=== PATIENT | female | born 1950 | race Caucasian/White ===

== ENCOUNTER → 2016-08-10 | Outpatient (CLI) | payer MEDICARE, BC ==
[~2016-08-10] VITALS: Ht 154.9 cm; Wt 101.8 kg
[~2016-08-10] MED LIST: ALLEGRA ALLERG180 MG PO; AMOXICILLIN/CLA1 TA1 PO; BENICAR PO; BUMEX2 MG; BUMEX2 MG PO; BUSPAR DIVIDOSE15 MG PO; CALCIUM-500 5001 CTB; CALCIUM-500 5001 CTB PO; CARDIZEM CD120 MG PO; CEPHALEXIN500 M1 PO; CORGARD40 MG PO; COZAAR 50MG50 MG/TAB PO; COZAAR100 MG PO; ENJUVIA; ENJUVIA0.3 MG PO; EPA FISH OIL1 SGL PO; FLAGYL500 MG PO; FLEXERIL 1010 MG/TAB PO; FLEXERIL10 MG PO; FLONASE NASAL S16 GM NS; GABAPENTIN100 M1 PO; IMITREX100 MG PO; KLONOPIN 0.5MG0.5 MG PO; KLONOPIN 1MG1 MG PO; LASIX 40MG TABL40 MG PO; LASIX 80MG TABL80 MG PO; LEXAPRO 10MG10 MG PO; LORTAB 5/500 501 TAB PO; MICRO-K 1010 MEQ PO; MOBIC 7.5MG7.5 MG PO; MULTI VITAMINS1 TAB PO; NAPROSYN PO; NATURE'S BLE1000 MCG PO; NEURONTIN100 MG/CAP PO; NEURONTIN300 MG/CAP PO; NORCO 325 MG-51 TAB PO; OCUVITE1 TA1 PO; PAXIL 20MG20 MG PO; PHENTERMINE15 MG PO; PRAVACHOL 40MG40 MG PO; PRAVASTATIN; PRIL40 PO; PRILOSEC 20MG20 MG PO; PROBIOTIC PO; PROBIOTIC-MAJOR PO; REMERON 15M15 MG/TA1 PO; SEROQUEL 2525 MG/TAB PO; SEROQUEL100 MG PO; SYNTHROID 0.10.15 MG PO; TEGRETOL 2200 MG/TA1 PO; TEGRETOL 2200 MG/TAB PO; TIAZAC120 MG PO; TIAZAC240 MG PO; TOPAMAX 25MG25 M1 PO; TOPAMAX50 MG PO; ULTRAM 50MG TAB50 MG PO; VICODIN 5/5001 UDTAB PO; VITAMIN B COMPL1 SGL PO; VITAMIN D 1001000 IU PO; VITAMIN D32000 IU; VITAMIND3 5000; ZAROXOLYN5 MG PO
[2016-08-10 14:01] VITALS: BP 109/59; PULSE 58
[2016-08-10 14:24] VITALS: BP 109/59; PULSE 58
== END ==
LOC: LIGHT 13:55
DX: E88.81 Metabolic syndrome and other insulin resistance (principal); E11.9 Type 2 diabetes mellitus without complications; E66.01 Morbid (severe) obesity due to excess calories; Z68.41 Body mass index [BMI] 40.0-44.9, adult; I10 Essential (primary) hypertension

== ENCOUNTER → 2016-08-15 | Outpatient (CLI) | payer MEDICARE, BC | LOC: MHCPAIN 10:53 | DX: G89.29 Other chronic pain (principal); M54.16 Radiculopathy, lumbar region; M47.817 Spondylosis without myelopathy or radiculopathy, lumbosacral region; M48.06 Spinal stenosis, lumbar region; M53.86 Other specified dorsopathies, lumbar region | CPT/HCPCS: G0463 ==

== ENCOUNTER → 2016-08-31 | Outpatient (CLI) | payer MEDICARE, BC | LOC: MHCPAIN 09:17 | DX: M47.817 Spondylosis without myelopathy or radiculopathy, lumbosacral region (principal) | CPT/HCPCS: J1100; Q9967 ==

== ENCOUNTER → 2016-09-28 | Outpatient (CLI) | payer MEDICARE, BC | LOC: MHCPAIN 10:59 | DX: M47.817 Spondylosis without myelopathy or radiculopathy, lumbosacral region (principal) | CPT/HCPCS: J1100 ==

== ENCOUNTER → 2016-10-09 | Outpatient (CLI) | payer MEDICARE, BC | LOC: MHCPAIN 10:54 | DX: G89.29 Other chronic pain (principal); M47.27 Other spondylosis with radiculopathy, lumbosacral region | CPT/HCPCS: G0463 ==

== ENCOUNTER 2016-10-18 10:00 | Outpatient (RCR) | payer MEDICARE, BC ==
[~2016-10-18 10:00] MED LIST changes: -CALCIUM-500 5001 CTB; -EPA FISH OIL1 SGL PO; -OCUVITE1 TA1 PO; -VITAMIND3 5000
== END 2016-10-26 08:56 | disposition home or self-care (01) ==
LOC: WSPT 10:00
DX: M48.06 Spinal stenosis, lumbar region (principal)
CPT/HCPCS: G8978-GP; G8979-GP; G8980-GP

== ENCOUNTER → 2016-10-27 | Outpatient (CLI) | payer MEDICARE, BC ==
[~2016-10-27] MED LIST changes: +CALCIUM-500 5001 CTB; +EPA FISH OIL1 SGL PO; +OCUVITE1 TA1 PO; +VITAMIND3 5000
== END ==
LOC: BHSO 14:20
DX: F31.81 Bipolar II disorder (principal)

== ENCOUNTER → 2016-11-09 | Outpatient (CLI) | payer MEDICARE, BC | LOC: MHCPAIN 12:24 | DX: M47.817 Spondylosis without myelopathy or radiculopathy, lumbosacral region (principal) | CPT/HCPCS: J1100 ==

== ENCOUNTER → 2016-11-22 | Outpatient (CLI) | payer MEDICARE, BC | LOC: MHCPAIN 11:13 | DX: G89.29 Other chronic pain (principal); M47.817 Spondylosis without myelopathy or radiculopathy, lumbosacral region; M53.3 Sacrococcygeal disorders, not elsewhere classified; R51 Headache | CPT/HCPCS: G0463 ==

== ENCOUNTER → 2016-11-30 | Outpatient (CLI) | payer MEDICARE, BC | LOC: MHCPAIN 10:44 | DX: M53.3 Sacrococcygeal disorders, not elsewhere classified (principal) | CPT/HCPCS: G0260; J1040; Q9967 ==

== ENCOUNTER → 2016-12-26 | Outpatient (CLI) | payer MEDICARE, BC | LOC: BHSO 10:24 | DX: F31.73 Bipolar disorder, in partial remission, most recent episode manic (principal) ==

== ENCOUNTER 2017-01-27 11:36 | Emergency (ER) | payer MEDICARE, BC ==
[~2017-01-27] VITALS: Ht 154.9 cm; Wt 99.5 kg
[~2017-01-27 11:36] MED LIST changes: -CALCIUM-500 5001 CTB; -EPA FISH OIL1 SGL PO; -OCUVITE1 TA1 PO; -VITAMIND3 5000
[2017-01-27 12:18] VITALS: TEMP 99.1
[2017-01-27] MEDS ORDERED: OCUVITE1 TA1 PO (12:30)
[2017-01-27] MEDS ORDERED: CALCIUM-500 5001 CTB (12:30)
[2017-01-27] MEDS ORDERED: VITAMIND3 5000 (12:31)
[2017-01-27] MEDS ORDERED: EPA FISH OIL1 SGL PO (12:31)
[2017-01-27 12:43] VITALS: BP 137/95; PULSE 65
== END 2017-01-27 12:44 | disposition home or self-care (01) ==
LOC: COL.ER 11:36
DX: L76.22 Postprocedural hemorrhage of skin and subcutaneous tissue following other procedure (principal)

== ENCOUNTER → 2017-02-20 | Outpatient (CLI) | payer MEDICARE, OTHER ==
[~2017-02-20] MED LIST changes: +CALCIUM-500 5001 CTB; +EPA FISH OIL1 SGL PO; +OCUVITE1 TA1 PO; +VITAMIND3 5000
== END ==
LOC: BHSO 10:20
DX: F31.73 Bipolar disorder, in partial remission, most recent episode manic (principal)

== ENCOUNTER → 2017-03-02 | Outpatient (CLI) | payer MEDICARE, OTHER | LOC: MHCPAIN 12:52 | DX: G89.29 Other chronic pain (principal); M47.817 Spondylosis without myelopathy or radiculopathy, lumbosacral region; M54.16 Radiculopathy, lumbar region; M53.3 Sacrococcygeal disorders, not elsewhere classified | CPT/HCPCS: G0463 ==

== ENCOUNTER → 2017-05-23 | Outpatient (CLI) | payer MEDICARE, OTHER | LOC: BHSO 12:52 | DX: F31.73 Bipolar disorder, in partial remission, most recent episode manic (principal) ==

== ENCOUNTER → 2017-05-23 | Outpatient (CLI) | payer MEDICARE, OTHER | LOC: MC.RAD 11:18 | DX: Z12.31 Encounter for screening mammogram for malignant neoplasm of breast (principal) ==

== ENCOUNTER → 2017-05-30 | Outpatient (CLI) | payer MEDICARE, OTHER | LOC: MC.RAD 13:00 | DX: R92.2 Inconclusive mammogram (principal) ==

== ENCOUNTER → 2017-06-28 | Outpatient (CLI) | payer MEDICARE, OTHER | LOC: BHSO 12:53 | DX: F31.73 Bipolar disorder, in partial remission, most recent episode manic (principal) ==

== ENCOUNTER → 2017-07-05 | Outpatient (CLI) | payer MEDICARE, OTHER ==
[~2017-07-05] VITALS: Ht 154.9 cm; Wt 98.0 kg
[2017-07-05 13:49] VITALS: BP 92/60; PULSE 60
== END ==
LOC: LIGHT 13:39
DX: E88.81 Metabolic syndrome and other insulin resistance (principal); E11.9 Type 2 diabetes mellitus without complications; E66.01 Morbid (severe) obesity due to excess calories; Z68.41 Body mass index [BMI] 40.0-44.9, adult; Z71.3 Dietary counseling and surveillance; I10 Essential (primary) hypertension

== ENCOUNTER → 2017-08-16 | Outpatient (CLI) | payer MEDICARE, BC ==
[~2017-08-16] VITALS: Ht 154.9 cm; Wt 98.0 kg
[2017-08-16 10:15] VITALS: BP 134/92; PULSE 68
== END ==
LOC: LIGHT
DX: E88.81 Metabolic syndrome and other insulin resistance (principal); E11.9 Type 2 diabetes mellitus without complications; E66.01 Morbid (severe) obesity due to excess calories; Z68.41 Body mass index [BMI] 40.0-44.9, adult; Z71.3 Dietary counseling and surveillance; I10 Essential (primary) hypertension
CPT/HCPCS: G0463

== ENCOUNTER → 2017-08-27 | Outpatient (CLI) | payer MEDICARE, BC | LOC: BHSO 11:28 | DX: F31.73 Bipolar disorder, in partial remission, most recent episode manic (principal) | CPT/HCPCS: G0463 ==

== ENCOUNTER → 2017-09-13 | Outpatient (CLI) | payer MEDICARE, BC ==
[~2017-09-13] VITALS: Ht 154.9 cm; Wt 99.6 kg
[2017-09-13 13:46] VITALS: BP 124/88; PULSE 68
== END ==
LOC: LIGHT 13:32
DX: Z01.89 Encounter for other specified special examinations (principal)

== ENCOUNTER → 2017-09-18 | Outpatient (CLI) | payer MEDICARE, BC | LOC: MHCPAIN 12:29 | DX: G89.29 Other chronic pain (principal); M47.817 Spondylosis without myelopathy or radiculopathy, lumbosacral region; M54.16 Radiculopathy, lumbar region; M53.3 Sacrococcygeal disorders, not elsewhere classified | CPT/HCPCS: G0463 ==

== ENCOUNTER → 2017-10-25 | Outpatient (CLI) | payer MEDICARE, BC | LOC: BHSO 09:57 | DX: F31.81 Bipolar II disorder (principal) | CPT/HCPCS: G0463 ==

== ENCOUNTER → 2017-11-19 | Outpatient (CLI) | payer MEDICARE, OTHER | LOC: COL.RAD 14:54 | DX: M47.812 Spondylosis without myelopathy or radiculopathy, cervical region (principal) ==

== ENCOUNTER → 2017-11-19 | Outpatient (CLI) | payer MEDICARE, BC | LOC: MHCPAIN 14:00 | DX: G89.29 Other chronic pain (principal); R51 Headache; M54.2 Cervicalgia | CPT/HCPCS: G0463 ==

== ENCOUNTER → 2017-12-13 | Outpatient (CLI) | payer MEDICARE, OTHER ==
[~2017-12-13] VITALS: Ht 154.9 cm; Wt 98.4 kg
[~2017-12-13] MED LIST changes: +00186-0370-20 IH; +00186-0372-20 IH; +BIOTIN5000 MCG PO; +CARDIZEM CD 24240 MG PO; +DIOVAN 160MG160 MG PO; +LIORESAL 1010 MG/TAB PO; +LOPRESSOR100 MG PO; +MULTIVITAMIN FO1 CAP PO; -NATURE'S BLE1000 MCG PO; +SINGULAIR 110 MG/TAB PO; +VENTOLIN0.09 MG IH
[2017-12-13 13:06] VITALS: BP 134/82; PULSE 60
== END ==
LOC: LIGHT 12:54
DX: E88.81 Metabolic syndrome and other insulin resistance (principal); E11.9 Type 2 diabetes mellitus without complications; E66.01 Morbid (severe) obesity due to excess calories; Z68.41 Body mass index [BMI] 40.0-44.9, adult; Z71.3 Dietary counseling and surveillance; I10 Essential (primary) hypertension
CPT/HCPCS: G0463

== ENCOUNTER → 2017-12-14 | Outpatient (CLI) | payer MEDICARE, OTHER | LOC: BHSO 09:21 | DX: F31.81 Bipolar II disorder (principal) | CPT/HCPCS: G0463 ==

== ENCOUNTER 2017-12-21 08:51 | Emergency (ER) | payer MEDICARE, OTHER ==
[~2017-12-21] VITALS: Ht 154.9 cm; Wt 98.6 kg
[~2017-12-21 08:51] MED LIST changes: -00186-0370-20 IH; -CARDIZEM CD 24240 MG PO; -DIOVAN 160MG160 MG PO; -LIORESAL 1010 MG/TAB PO; -LOPRESSOR100 MG PO; -MULTIVITAMIN FO1 CAP PO; -VENTOLIN0.09 MG IH
[2017-12-21 08:58] VITALS: TEMP 98.1
[2017-12-21 09:30] LABS: BASO % 0.4 % (0.0-2.0); EOS # 0.3 (0.0-0.7); EOS % 3.5 % (0-4.0); GRAN # 6.7 (1.4-6.5); GRAN % 71.4 % (42.2-75.2); HEMATOCRIT 40.1 % (37.0-47.0); HEMOGLOBIN 13.7 g/dl (12.5-16.0); LYMPH # 1.7 (1.2-3.4); LYMPH % 17.9 % (20.0-51.0); MEAN CELL VOLUME 89 fl (80.0-100.0); MEAN CORPUSCULAR HEMOGLOBIN 30 pg (27.0-31.0); MEAN CORPUSCULAR HGB CONC 34 g/dl (33.0-37.0); MEAN PLATELET VOLUME 8.3 fl (7.4-10.4); MONO # 0.6 (0.1-0.6); MONO % 6.4 % (1.7-9.3); PLATELET COUNT 291 K/mm3 (130-400); RED BLOOD COUNT 4.51 M/mm3 (4.10-5.30); REDCELL DISTRIBUTION WIDTH-CV 12.7 % (11.5-14.5)
[2017-12-21] MEDS ORDERED: 00186-0370-20 IH (09:35)
[2017-12-21 09:39] LABS: ARTERIAL BLD GAS O2 SATURATION 88.7 % (92-100); ARTERIAL BLD GAS TCO2 CT 25.6; ARTERIAL BLOOD GAS BASE EXCESS 1.2 (-2-2); ARTERIAL BLOOD GAS HCO3 24.5 meq/L (22-26); ARTERIAL BLOOD GAS PCO2 34.9 mmHg (35-45); ARTERIAL BLOOD GAS PO2 55.5 mmHg (80-100); ARTERIAL BLOOD GAS pH 7.46 (7.35-7.45)
[2017-12-21] MEDS ORDERED: CARDIZEM CD 24240 MG PO (10:22)
[2017-12-21 10:28] LABS: ALBUMIN 4.1 gm/dL (3.5-5.0); BILIRUBIN,TOTAL 0.5 mg/dL (0.0-1.0); CALCIUM 9.4 mg/dL (8.4-10.2); CREATININE, serum 0.61 mg/dL (0.52-1.25); MAGNESIUM 2.1 mg/dL (1.6-2.3); POTASSIUM 3.9 mmol/L (3.4-5.0); TOTAL PROTEIN 8.7 gm/dL (6.4-8.2)
[2017-12-21] MEDS ORDERED: MULTIVITAMIN FO1 CAP PO (10:28)
[2017-12-21] MEDS ORDERED: NORCO 325 MG-51 TAB PO (10:28)
[2017-12-21 10:41] LABS: TROPONIN-I 1.32 ng/mL (0.000-0.034)
[2017-12-21 10:57] LABS: THYROID STIMULATING HORMONE 0.103 uIU/mL (0.465-4.680)
[2017-12-21] MEDS ORDERED: CORGARD40 MG PO (11:02)
[2017-12-21] MEDS ORDERED: IMITREX100 MG PO (11:03)
[2017-12-21] MEDS ORDERED: VENTOLIN0.09 MG IH (11:03)
[2017-12-21] MEDS ORDERED: DIOVAN 160MG160 MG PO (11:03)
[2017-12-21] MEDS ORDERED: LOPRESSOR100 MG PO (11:03)
[2017-12-21] MEDS ORDERED: LIORESAL 1010 MG/TAB PO (11:04)
[2017-12-21 12:06] LABS: INR 1.1 (0.8-3.0); PROTHROMBIN TIME 12.7 SECONDS (9.7-12.8)
[2017-12-21 12:09] LABS: PARTIAL THROMBOPLASTIN TIME 29.2 SECONDS (26.0-37.0)
[2017-12-21 12:49] VITALS: BP 120/69; PULSE 95
== END 2017-12-21 13:05 | disposition short-term general hospital (02) ==
LOC: COL.ER 08:51
PROVIDERS: Emergency Medicine
DX: I26.99 Other pulmonary embolism without acute cor pulmonale (principal); I10 Essential (primary) hypertension; F31.9 Bipolar disorder, unspecified; E78.5 Hyperlipidemia, unspecified; E03.9 Hypothyroidism, unspecified; Z90.49 Acquired absence of other specified parts of digestive tract; Z90.710 Acquired absence of both cervix and uterus; Z87.891 Personal history of nicotine dependence
CPT/HCPCS: J1644; J7030; Q9967

== ENCOUNTER → 2018-01-14 | Outpatient (CLI) | payer MEDICARE, OTHER ==
[~2018-01-14] MED LIST changes: +00186-0370-20 IH; +CARDIZEM CD 24240 MG PO; +DIOVAN 160MG160 MG PO; +LIORESAL 1010 MG/TAB PO; +LOPRESSOR100 MG PO; +MULTIVITAMIN FO1 CAP PO; +VENTOLIN0.09 MG IH
== END ==
LOC: BHSO 10:30
DX: F31.81 Bipolar II disorder (principal)
CPT/HCPCS: G0463

== ENCOUNTER → 2018-01-24 | Outpatient (CLI) | payer MEDICARE, OTHER ==
[~2018-01-24] VITALS: Ht 154.9 cm; Wt 99.3 kg
[2018-01-24 14:31] VITALS: BP 126/66; PULSE 50
== END ==
LOC: LIGHT 14:08
DX: E88.81 Metabolic syndrome and other insulin resistance (principal); E11.9 Type 2 diabetes mellitus without complications; E66.01 Morbid (severe) obesity due to excess calories; Z68.41 Body mass index [BMI] 40.0-44.9, adult; Z71.3 Dietary counseling and surveillance; I10 Essential (primary) hypertension
CPT/HCPCS: G0463

== ENCOUNTER → 2018-02-12 | Outpatient (CLI) | payer MEDICARE, OTHER | LOC: COL.VAS 07:57 | DX: I08.0 Rheumatic disorders of both mitral and aortic valves (principal); Z86.711 Personal history of pulmonary embolism ==

== ENCOUNTER → 2018-02-19 | Outpatient (CLI) | payer MEDICARE, OTHER ==
[~2018-02-19] MED LIST changes: +COUMADIN4 MG PO
== END ==
LOC: BHSO 10:16
DX: F31.81 Bipolar II disorder (principal)

== ENCOUNTER → 2018-02-21 | Outpatient (CLI) | payer MEDICARE, OTHER ==
[~2018-02-21] VITALS: Ht 154.9 cm; Wt 100.7 kg
[2018-02-21 15:38] VITALS: BP 104/52; PULSE 56
== END ==
LOC: LIGHT 13:58
DX: E88.81 Metabolic syndrome and other insulin resistance (principal); E11.9 Type 2 diabetes mellitus without complications; E66.01 Morbid (severe) obesity due to excess calories; Z68.41 Body mass index [BMI] 40.0-44.9, adult; Z71.3 Dietary counseling and surveillance; I10 Essential (primary) hypertension
CPT/HCPCS: G0463

== ENCOUNTER → 2018-05-09 | Outpatient (CLI) | payer MEDICARE, OTHER, BC ==
[~2018-05-09] VITALS: Ht 154.9 cm; Wt 98.2 kg
[~2018-05-09] MED LIST changes: +COUMADIN 5MG5 MG/TAB PO; -COUMADIN4 MG PO; +MAG-G500 MG PO; +NEURONTIN600 MG/TAB PO; +ZYRTEC 10MG10 MG PO
[2018-05-09 13:28] VITALS: BP 116/56; PULSE 52
== END ==
LOC: LIGHT 11:18
DX: E88.81 Metabolic syndrome and other insulin resistance (principal); E11.9 Type 2 diabetes mellitus without complications; I10 Essential (primary) hypertension; E66.01 Morbid (severe) obesity due to excess calories; Z68.41 Body mass index [BMI] 40.0-44.9, adult; Z71.3 Dietary counseling and surveillance
CPT/HCPCS: G0463

== ENCOUNTER → 2018-05-21 | Outpatient (CLI) | payer MEDICARE, OTHER, BC | LOC: BHSO 13:57 | DX: F31.81 Bipolar II disorder (principal) | CPT/HCPCS: G0463 ==

== ENCOUNTER → 2018-06-13 | Outpatient (CLI) | payer MEDICARE, OTHER, BC ==
[~2018-06-13] VITALS: Ht 154.9 cm; Wt 97.3 kg
[2018-06-13 15:00] VITALS: BP 104/70; PULSE 50
== END ==
LOC: LIGHT 11:50
DX: E88.81 Metabolic syndrome and other insulin resistance (principal); I10 Essential (primary) hypertension; E11.9 Type 2 diabetes mellitus without complications; E66.01 Morbid (severe) obesity due to excess calories; Z68.41 Body mass index [BMI] 40.0-44.9, adult; Z71.3 Dietary counseling and surveillance
CPT/HCPCS: G0463

== ENCOUNTER → 2018-07-08 | Outpatient (CLI) | payer MEDICARE, OTHER, BC | LOC: MHCPAIN 10:29 | DX: G89.29 Other chronic pain (principal); M47.817 Spondylosis without myelopathy or radiculopathy, lumbosacral region; M53.3 Sacrococcygeal disorders, not elsewhere classified | CPT/HCPCS: G0463 ==

== ENCOUNTER → 2018-08-08 | Outpatient (CLI) | payer MEDICARE, OTHER, BC | LOC: BHSO 11:39 | DX: F31.81 Bipolar II disorder (principal) | CPT/HCPCS: G0463 ==

== ENCOUNTER → 2018-10-03 | Outpatient (CLI) | payer MEDICARE, OTHER, BC ==
[~2018-10-03] VITALS: Ht 154.9 cm; Wt 97.7 kg
[2018-10-03 13:37] VITALS: BP 106/56; PULSE 60
== END ==
LOC: LIGHT
DX: E88.81 Metabolic syndrome and other insulin resistance (principal); E11.65 Type 2 diabetes mellitus with hyperglycemia; I10 Essential (primary) hypertension; E66.01 Morbid (severe) obesity due to excess calories; Z68.41 Body mass index [BMI] 40.0-44.9, adult; Z71.3 Dietary counseling and surveillance

== ENCOUNTER → 2018-10-29 | Outpatient (CLI) | payer MEDICARE, OTHER, BC | LOC: MHCPAIN 15:07 | DX: G89.29 Other chronic pain (principal); M47.817 Spondylosis without myelopathy or radiculopathy, lumbosacral region; M54.16 Radiculopathy, lumbar region; M53.3 Sacrococcygeal disorders, not elsewhere classified | CPT/HCPCS: G0463 ==

== ENCOUNTER → 2018-11-07 | Outpatient (CLI) | payer MEDICARE, OTHER, BC | LOC: BHSO 13:54 | DX: F31.81 Bipolar II disorder (principal) | CPT/HCPCS: G0463 ==

== ENCOUNTER → 2018-11-26 | Outpatient (CLI) | payer MEDICARE, OTHER | LOC: COL.RAD 07:09 | DX: R07.9 Chest pain, unspecified (principal); Z98.84 Bariatric surgery status; Z90.49 Acquired absence of other specified parts of digestive tract; Z86.711 Personal history of pulmonary embolism | CPT/HCPCS: Q9967 ==

== ENCOUNTER → 2018-12-18 | Outpatient (CLI) | payer MEDICARE, OTHER | LOC: BHSO 14:33 | DX: F31.81 Bipolar II disorder (principal) | CPT/HCPCS: G0463 ==

== ENCOUNTER → 2019-02-19 | Outpatient (CLI) | payer MEDICARE, OTHER | LOC: BHSO 14:21 | DX: F31.81 Bipolar II disorder (principal) | CPT/HCPCS: G0463 ==

== ENCOUNTER 2019-03-18 21:51 | Emergency (ER) | payer MEDICARE, OTHER ==
[~2019-03-18] VITALS: Ht 154.9 cm; Wt 97.3 kg
[2019-03-18 21:52] VITALS: BP 121/70; TEMP 98.4
[2019-03-18] MEDS ORDERED: PREDNISONE20 MG PO (22:01)
[2019-03-18] MEDS ORDERED: VENTOLIN0.09 MG IH (22:54)
[2019-03-18] MEDS ORDERED: ZANTAC 150MG T150 MG PO (22:55)
[2019-03-18 23:12] VITALS: PULSE 77
== END 2019-03-18 23:10 | disposition home or self-care (01) ==
LOC: COL.ER 21:51
DX: T78.40XA Allergy, unspecified, initial encounter (principal); F31.9 Bipolar disorder, unspecified; Z79.01 Long term (current) use of anticoagulants
CPT/HCPCS: J2930

== ENCOUNTER → 2019-04-30 | Outpatient (CLI) | payer MEDICARE, OTHER ==
[~2019-04-30] MED LIST changes: +PREDNISONE20 MG PO; +ZANTAC 150MG T150 MG PO
== END ==
LOC: MHCPAIN 08-15 14:14
DX: G89.29 Other chronic pain (principal); M47.817 Spondylosis without myelopathy or radiculopathy, lumbosacral region; M54.16 Radiculopathy, lumbar region; M53.3 Sacrococcygeal disorders, not elsewhere classified
CPT/HCPCS: G0463

== ENCOUNTER → 2019-05-22 | Outpatient (CLI) | payer MEDICARE, OTHER | LOC: BHSO 13:57 | DX: F31.81 Bipolar II disorder (principal) | CPT/HCPCS: G0463 ==

== ENCOUNTER → 2019-07-01 | Outpatient (CLI) | payer MEDICARE, OTHER ==
[~2019-07-01] MED LIST changes: +LEVAQUIN 750MG750 M1 PO
== END ==
LOC: MHCPAIN 13:53
DX: M47.817 Spondylosis without myelopathy or radiculopathy, lumbosacral region (principal); M54.16 Radiculopathy, lumbar region
CPT/HCPCS: G0463

== ENCOUNTER 2019-09-05 10:49 | Emergency (ER) | payer MEDICARE, OTHER ==
[~2019-09-05] VITALS: Ht 152.4 cm; Wt 97.3 kg
[~2019-09-05 10:49] MED LIST changes: -LEVAQUIN 750MG750 M1 PO
[2019-09-05 12:07] VITALS: TEMP 98.5
[2019-09-05 12:14] LABS: BASO % 0.6 % (0.0-2.0); EOS # 0.2 (0.0-0.7); EOS % 3.2 % (0-4.0); GRAN % 62.3 % (42.2-75.2); HEMOGLOBIN 10.7 g/dl (12.5-16.0); LYMPH # 1.5 (1.2-3.4); LYMPH % 23.7 % (20.0-51.0); MEAN CELL VOLUME 81 fl (80.0-100.0); MEAN CORPUSCULAR HEMOGLOBIN 26 pg (27.0-31.0); MEAN CORPUSCULAR HGB CONC 32 g/dl (33.0-37.0); MEAN PLATELET VOLUME 8.1 fl (7.4-10.4); MONO # 0.6 (0.1-0.6); MONO % 9.9 % (1.7-9.3); PLATELET COUNT 293 K/mm3 (130-400); REDCELL DISTRIBUTION WIDTH-CV 15.7 % (11.5-14.5)
[2019-09-05 12:18] LABS: HEMATOCRIT 33.8 % (37.0-47.0)
[2019-09-05 12:22] LABS: INR 1.1 (0.8-3.0); PROTHROMBIN TIME 12.5 SECONDS (9.7-12.8)
[2019-09-05 12:29] LABS: ALANINE AMINOTRANSFERASE 12 U/L (9-52); ALBUMIN 4.2 gm/dL (3.5-5.0); ALKALINE PHOSPHATASE 122 U/L (50-136); ANION GAP 11 mmol/L (7-16); AST,SGOT 27 U/L (15-37); BILIRUBIN,TOTAL 0.3 mg/dL (0.0-1.0); BLOOD UREA NITROGEN 13 mg/dL (7-17); CARBON DIOXIDE 25 mmol/L (22-30); CHLORIDE 102 mmol/L (98-107); GLUCOSE 92 mg/dL (74-106); LIPASE 103 U/L (23-300); POTASSIUM 4.3 mmol/L (3.4-5.0); SODIUM 138 mmol/L (137-145); TOTAL PROTEIN 7.8 gm/dL (6.4-8.2)
[2019-09-05 12:42] LABS: TROPONIN-I < 0.012 ng/mL (0.000-0.035)
[2019-09-05] MEDS ORDERED: LEVAQUIN 750MG750 M1 PO (14:19)
[2019-09-05 14:43] VITALS: BP 115/66; PULSE 55
== END 2019-09-05 14:40 | disposition home or self-care (01) ==
LOC: COL.ER 10:49
PROVIDERS: Emergency Medicine
DX: J18.9 Pneumonia, unspecified organism (principal); R09.1 Pleurisy; N28.89 Other specified disorders of kidney and ureter; Z86.718 Personal history of other venous thrombosis and embolism
CPT/HCPCS: J7030; Q9967

== ENCOUNTER → 2019-10-01 | Outpatient (CLI) | payer MEDICARE, OTHER ==
[~2019-10-01] MED LIST changes: +LEVAQUIN 750MG750 M1 PO
== END ==
LOC: MHCPAIN 13:48
DX: M47.816 Spondylosis without myelopathy or radiculopathy, lumbar region (principal)
CPT/HCPCS: G0463

== ENCOUNTER → 2019-10-07 | Outpatient (CLI) | payer MEDICARE, OTHER | LOC: COL.RAD 09-16 08:30 | DX: Z01.812 Encounter for preprocedural laboratory examination (principal); J18.1 Lobar pneumonia, unspecified organism; R91.1 Solitary pulmonary nodule; J90 Pleural effusion, not elsewhere classified | CPT/HCPCS: Q9967 ==

== ENCOUNTER 2019-10-10 15:00 | Outpatient (RCR) | payer MEDICARE, OTHER | END 2019-11-11 | disposition home or self-care (01) | LOC: WSC | DX: M47.817 Spondylosis without myelopathy or radiculopathy, lumbosacral region (principal); M48.061 Spinal stenosis, lumbar region without neurogenic claudication ==

== ENCOUNTER → 2019-12-04 | Outpatient (CLI) | payer MEDICARE, OTHER | LOC: COL.VAS 12:30 | DX: I08.0 Rheumatic disorders of both mitral and aortic valves (principal); Z86.711 Personal history of pulmonary embolism; Z86.73 Personal history of transient ischemic attack (TIA), and cerebral infarction without residual deficits ==

== ENCOUNTER → 2019-12-08 | Outpatient (CLI) | payer MEDICARE, OTHER | LOC: MC.RAD 09-25 09:15 | DX: Z12.31 Encounter for screening mammogram for malignant neoplasm of breast (principal) ==

== ENCOUNTER → 2019-12-16 | Outpatient (CLI) | payer MEDICARE, OTHER ==
[2019-12-16] VITALS (13 sets, daily range): BP systolic 124–150; BP diastolic 63–81; PULSE 52–64
[~2019-12-16] VITALS: Ht 152.4 cm; Wt 103.3 kg
[~2019-12-16] MED LIST changes: +BENADRYL50 MG PO; +MICRO-K 10 EXT10 MEQ PO; -MICRO-K 1010 MEQ PO; +TRILEPTAL 300M300 MG PO
--- NOTE | 2019-12-16 11:05 | NUR ---
pt to ct per wheelchair. Pt positioned in prone position on ct table. O2 on at 2l/nc. Monitors applied to pt.
--- NOTE | 2019-12-16 11:13 | NUR ---
Dr Spencer into room and talks with pt regarding procedure.
--- NOTE | 2019-12-16 11:25 | NUR ---
Specimens obtained and placed in formalin by Dr Spencer, specimen labeled.
--- NOTE | 2019-12-16 12:40 | NUR ---
Talked with Dr Spencer regarding pt. Pt vitals signs stable and pt continues to have no pain. Dr Spencer stated pt may have something to eat and drink.
--- NOTE | 2019-12-16 13:45 | NUR ---
Notified Dr Spencer of pts status. Vital signs stable. denies pain. Dr Spencer stated pt can be released home.
--- NOTE | 2019-12-16 13:55 | NUR ---
int removed with catheter tip intact, 2x2 and coban to site. Pt up to get dressed
--- NOTE | 2019-12-16 14:08 | NUR ---
Discharge instructions gone over with pt. Pt verbalized understanding of instructions. Copy given to pt. Pt notified ride to pick her up.
--- NOTE | 2019-12-16 14:30 | NUR ---
Pt out to car per wheelchair. Denies pain. Bandaid to back clean dry and intact. Pt up and into car without assistance.
== END ==
LOC: COL.RAD 08:30
DX: N28.89 Other specified disorders of kidney and ureter (principal)
CPT/HCPCS: 32107

== ENCOUNTER 2019-12-26 12:50 | Inpatient (IN) | payer MEDICARE, OTHER ==
[~2019-12-26] VITALS: Ht 154.9 cm; Wt 103.5 kg
[2020-02-03] VITALS (12 sets, daily range): BP systolic 103–127; BP diastolic 50–85; PULSE 56–70; TEMP 97.5–99
[2020-02-03] MEDS ORDERED: CARDIZEM CD 24240 MG PO (06:02)
[2020-02-03] MEDS ORDERED: LEXAPRO20 MG PO (06:02)
[2020-02-03] MEDS ORDERED: K-DUR 10 MEQ T10 MEQ PO (06:03)
[2020-02-03] MEDS ORDERED: TOPROL XL100 MG PO (06:03)
[2020-02-03] MEDS ORDERED: VITAMIN D250 MCG PO (06:04)
[2020-02-03] MEDS ORDERED: VITAMIN B COMPL1 SGL PO (06:04)
[2020-02-03] MEDS ORDERED: NEURONTIN300 MG/CAP PO (06:04)
[2020-02-03] MEDS ORDERED: KLONOPIN 0.5MG0.5 MG PO (06:05)
[2020-02-03] MEDS ORDERED: BENADRYL ALLERG25 M2 PO (06:06)
[2020-02-03] MEDS ORDERED: LASIX 40MG TABL40 MG PO (06:06)
[2020-02-03] MEDS ORDERED: MERIBIN5 MG PO (06:06)
[2020-02-03] MEDS ORDERED: TRILEPTAL 300M300 MG PO (06:07)
[2020-02-03] MEDS ORDERED: TRILEPTAL 150M150 MG PO (06:07)
[2020-02-03] MEDS ORDERED: DIOVAN 160MG160 MG PO (06:08)
[2020-02-03] MEDS ORDERED: ULTRAM 50MG TAB50 MG PO (06:08)
[2020-02-03] MEDS ORDERED: SYNTHROID 0.10.15 MG PO (06:09)
[2020-02-03] MEDS ORDERED: NORCO 325 MG-51 TAB PO (06:09)
[2020-02-03] MEDS ORDERED: SINGULAIR 110 MG/TAB PO (06:10)
[2020-02-03] MEDS ORDERED: PRAVACHOL 40MG40 MG PO (06:11)
[2020-02-03] MEDS ORDERED: PRIL40 PO (06:11)
[2020-02-03] MEDS ORDERED: IMITREX100 MG PO (06:12)
[2020-02-03] MEDS ORDERED: REMERON 15M15 MG/TA1 PO (06:12)
--- NOTE | 2020-02-03 06:48 | NUR ---
[place] [facility] [place]35. She is alert and oriented. Procedure is confirmed. She denies questions and verbalizes understanding. She states that she did not drink her pre-op gatorade. She took gabapentin this morning at home, so her pre-op dose is held. Blood glucose is taken and is 90. She does not take medications for her diabetes. Type and screen is drawn and collected by lab. #18g IV is started in right hand with x1 attempt. Breath sounds are clear bilaterally to auscultation. Clear S1S2 heart tones are heard with regular rate noted. Patient is taken to PACU by Jimbo for block with anesthesia. Patient's belongings are taken to PACU.
--- NOTE | 2020-02-03 19:54 | NUR ---
Patient has done well since up from OR. Drowsy on arrival to room by bed. Post op VS and post op fluids infusing. Educated patient on diet and ERAS protocol. Lap sites x 5 with swiftset noted. Martinez to dependent drainage with clear yellow urine noted. RAULITO to RLQ with serosanguinous drainage present. Patient has requested pain medications for right quadrant pain, medications were given per orders. Tolerating clear liquid diet without complications. SCDs to BLE. No further needs at this time. Reported off to appeals board referee.
--- NOTE | 2020-02-03 20:00 | NUR ---
Received report from ROMEO Taylor. A/O x4. Denies pain at this time. Meds administered as ordered. Martinez catheter in place draining clear yellow urine. Denies SOB, on 4LO2NC. Pt understands to remain in bed postop until tmrw. x5 lap sites w/o complications, 1 RAULITO drain intact. RH IV intact with fluids infusing, dressing CDI. SCD in place to BLE. Needs met call light within reach.
--- NOTE | 2020-02-03 22:30 | NUR ---
Pt c/o pain to drain site, rate 10/10. PRN pain meds adminsitered with relief.
[2020-02-04 04:15] VITALS: BP 124/86; PULSE 72; TEMP 97.8
--- NOTE | 2020-02-04 06:57 | NUR ---
REPORT GIVEN TO ROMEO SHUKLA.
[2020-02-04 07:01] LABS: HEMATOCRIT 29.5 % (37.0-47.0); HEMOGLOBIN 9.1 g/dl (12.5-16.0)
[2020-02-04 07:07] LABS: CALCIUM 8.8 mg/dL (8.4-10.2); CREATININE, serum 0.96 (0.52-1.25); POTASSIUM 4.6 mmol/L (3.4-5.0)
[2020-02-04] MEDS ORDERED: DEMADEX 20MG20 M1 PO (07:59)
[2020-02-04] MEDS ORDERED: COZAAR100 MG PO (08:00)
[2020-02-04 08:27] VITALS: BP 117/53; PULSE 63; TEMP 97.9
--- NOTE | 2020-02-04 10:56 | NUR ---
Patient up and ambulated halls again for the second time, she did well. Steady gait. Donte EGAN rounded, orders obtained. Patient brown was removed & patient voiding pale yellow urine. Iv to Int. Tolerating clear liquids. Denies nausea. I reviewed with her free water restriction & patient is unsure, she really likes water, no interest in gatorade. An ensure provided, but then she felt like she was having an allergic reaction to the ensure, Benydryl given. She is doing okay now. RAULITO cr was sent to lab this am, Raulito drain to bulb compression. Robotic lap site edges well approximated. Some brusing noted. Patient is wanting to discharge home today, she is worried about her dog.
[2020-02-04 11:18] VITALS: BP 119/63; PULSE 57; TEMP 98.6
--- NOTE | 2020-02-04 14:10 | NUR ---
Imposer met with patient to discuss discharge planning. Patient lives alone in [place] and states her daughter Gaby (ph#[phone]) lives in the [place] area. Patient has DPOA-HC designating her daughter Gaby and a copy can be found in the EMR. Patient sees Dr. Mcgill for primary care and obtains medications from [facility]. Patient reports she is independent with ADLS but has started to use a cane after a couple falls at home. Patient states using the cane has helped her be more steady on her feet. Patient also has a CPAP and gets her supplies from [facility]. Patient states her daughter and brother "went behind her back" to try to set up Home Health for her but she is resistant to this. Patient states she is mainly interested in some assistance with household duties like cleaning. SW provided contact information for [facility], which provide private duty services. SUAD collaborated with patient's RN, Pao who reports patient has been independent in her room. SUAD will continue to follow as needed.
[2020-02-04 16:14] VITALS: BP 119/73; PULSE 54; TEMP 99.2
--- NOTE | 2020-02-04 16:50 | NUR ---
Patient ready for discharge. Orders obtained. Patient tolerated RAUILTO drain removal this afternoon. Pain much improved after. She did well with her lunch. Int dc. All discharge teaching given to patient. We reviewed signs & symptoms of infection. Free water restrictions-discussed. activity restrictions reviewed. Patient wheeled out with all belongings. Script for norco sent with patient. home meds & last dose taken reviewed.
== END 2020-02-04 17:00 | disposition home or self-care (01) | DRG 657 ==
LOC: INPTSU 02-03 05:21 → SURG 02-03 07:30
PROVIDERS: ADMIT Urology
PROC: 8E0W4CZ Robotic Assisted Procedure of Trunk Region, Percutaneous Endoscopic Approach (ICD-10-PCS; 2020-02-03)
PROC: 0TB04ZZ Excision of Right Kidney, Percutaneous Endoscopic Approach (ICD-10-PCS; principal; 2020-02-03 07:30)
DX: C64.1 Malignant neoplasm of right kidney, except renal pelvis (principal); E87.1 Hypo-osmolality and hyponatremia; F31.9 Bipolar disorder, unspecified; E11.9 Type 2 diabetes mellitus without complications; K21.9 Gastro-esophageal reflux disease without esophagitis; E78.5 Hyperlipidemia, unspecified; I10 Essential (primary) hypertension; E03.9 Hypothyroidism, unspecified; E66.01 Morbid (severe) obesity due to excess calories; G47.33 Obstructive sleep apnea (adult) (pediatric); I27.20 Pulmonary hypertension, unspecified; Z86.711 Personal history of pulmonary embolism
CPT/HCPCS: A4314; J0690; J1170; J1200; J2250; J2405; J2704; J3010; J7030; J7120

== ENCOUNTER → 2020-02-18 | Outpatient (CLI) | payer MEDICARE, OTHER ==
[~2020-02-18] MED LIST changes: +BENADRYL ALLERG25 M2 PO; +DEMADEX 20MG20 M1 PO; +K-DUR 10 MEQ T10 MEQ PO; +LEXAPRO20 MG PO; +MERIBIN5 MG PO; +TOPROL XL100 MG PO; +TRILEPTAL 150M150 MG PO; +VITAMIN D250 MCG PO
== END ==
LOC: BHSO 10:39
DX: F31.81 Bipolar II disorder (principal)
CPT/HCPCS: G0463

== ENCOUNTER → 2020-03-31 | Outpatient (CLI) | payer MEDICARE, OTHER | LOC: MHCPAIN 13:52 | DX: M47.817 Spondylosis without myelopathy or radiculopathy, lumbosacral region (principal); M54.5 Low back pain; M54.2 Cervicalgia; R51 Headache; M54.16 Radiculopathy, lumbar region; Z90.5 Acquired absence of kidney; Z79.01 Long term (current) use of anticoagulants ==

== ENCOUNTER → 2020-04-07 | Outpatient (CLI) | payer MEDICARE, OTHER | LOC: MHCPAIN 13:16 | DX: M54.81 Occipital neuralgia (principal); M54.2 Cervicalgia | CPT/HCPCS: J1040 ==

== ENCOUNTER → 2020-04-22 | Outpatient (CLI) | payer MEDICARE, OTHER ==
[~2020-04-22] VITALS: Ht 154.9 cm; Wt 105.5 kg
[~2020-04-22] MED LIST changes: +COUMADIN 3MG3 MG/TAB PO; +FLOMAX 0.40.4 MG/CAP PO; +LYSINE1000 MG; +PHARMASSURE MA500 MG PO; +TRELEGY ELLIPT1 EACH IH
[2020-04-22 14:35] VITALS: BP 124/60; PULSE 48
== END ==
LOC: LIGHT 11:17
DX: E66.01 Morbid (severe) obesity due to excess calories (principal); Z68.41 Body mass index [BMI] 40.0-44.9, adult; E11.9 Type 2 diabetes mellitus without complications; I10 Essential (primary) hypertension; Z98.84 Bariatric surgery status
CPT/HCPCS: G0463

== ENCOUNTER → 2020-05-07 | Outpatient (CLI) | payer MEDICARE, OTHER ==
[~2020-05-07] MED LIST changes: +ADVIL200 MG PO; +BENADRYL25 M2 PO; -COUMADIN 3MG3 MG/TAB PO; +DUO-KAPS1 CAP PO; +LYSINE 500500 MG/TAB PO; -LYSINE1000 MG
== END ==
LOC: BHSO 09:41
DX: F31.81 Bipolar II disorder (principal)
CPT/HCPCS: G0463

== ENCOUNTER 2020-05-28 07:19 | Day surgery (SDC) | payer MEDICARE, OTHER ==
[~2020-05-28] VITALS: Ht 155.1 cm; Wt 104.3 kg
[2020-05-28] VITALS (22 sets, daily range): BP systolic 95–150; BP diastolic 44–76; PULSE 53–70; TEMP 98.7
[~2020-05-28 07:19] MED LIST changes: -ADVIL200 MG PO; -BENADRYL25 M2 PO; -DUO-KAPS1 CAP PO
[2020-05-28 08:20] LABS: ALBUMIN 4.4 gm/dL (3.5-5.0); BILIRUBIN,TOTAL 0.5 mg/dL (0.0-1.0); CALCIUM 9.2 mg/dL (8.4-10.2); CREATININE, serum 1.17 (0.52-1.25); POTASSIUM 3.7 mmol/L (3.4-5.0); TOTAL PROTEIN 7.7 gm/dL (6.4-8.2)
[2020-05-28 08:25] LABS: HEMOGLOBIN 10.4 g/dl (12.5-16.0); MEAN CELL VOLUME 81 fl (80.0-100.0); MEAN CORPUSCULAR HEMOGLOBIN 26 pg (27.0-31.0); MEAN CORPUSCULAR HGB CONC 32 g/dl (33.0-37.0); PLATELET COUNT 274 K/mm3 (130-400); RED BLOOD COUNT 3.97 M/mm3 (4.10-5.30); REDCELL DISTRIBUTION WIDTH-CV 16.1 % (11.5-14.5)
[2020-05-28 08:26] LABS: HEMATOCRIT 32.3 % (37.0-47.0)
[2020-05-28 08:33] LABS: INR 1.2 (0.8-3.0); PROTHROMBIN TIME 13.5 SECONDS (9.7-12.8)
[2020-05-28] MEDS ORDERED: TRILEPTAL 300M300 MG PO (08:39)
[2020-05-28] MEDS ORDERED: NEURONTIN300 MG/CAP PO (08:42)
[2020-05-28] MEDS ORDERED: LEXAPRO20 MG PO (08:45)
[2020-05-28] MEDS ORDERED: ULTRAM 50MG TAB50 MG PO (08:48)
[2020-05-28] MEDS ORDERED: DUO-KAPS1 CAP PO (08:49)
[2020-05-28] MEDS ORDERED: ADVIL200 MG PO (08:50)
[2020-05-28] MEDS ORDERED: BENADRYL25 M2 PO (08:57)
--- NOTE | 2020-05-28 09:10 | NUR ---
Pt to procedure,report to ROMEO Flaherty.
--- NOTE | 2020-05-28 13:00 | NUR ---
#ml of air released from right radial band.Radial access had observed bleeding at site.#ml of air reinstilled back into band.No bleeding after air reinstilled.Pt instructed we will wait 1 hour before we attempt to release air again.
--- NOTE | 2020-05-28 14:30 | NUR ---
3ml of air removed from band,no bleeding observed at site.
--- NOTE | 2020-05-28 14:45 | NUR ---
2 ml of air released from band,no bleeding observed at site.
--- NOTE | 2020-05-28 15:00 | NUR ---
5 ml of air released from band,no bleeding at site observed.
--- NOTE | 2020-05-28 15:20 | NUR ---
This nurse checked on patient and small amount of bleeding observed at right radial site.5 ml of air reinstalled into band.bebeto Flaherty from [facility] notified.
--- NOTE | 2020-05-28 15:35 | NUR ---
ReynoldRn from [employer] came to assist with readjusting radial band.Per Dr Chapa,second band placed on right radial site.Per Dr Chapa,keep band in place for 2 hours prior to attempting to release air.
--- NOTE | 2020-05-28 18:28 | NUR ---
Discharge instructions given to Pt.Pt verbalizes understanding.
--- NOTE | 2020-05-28 18:34 | NUR ---
Radial site observed clean,dry,intact.INT removed,catheter tip intact.Report to [place].Doron awaiting her ride home.
--- NOTE | 2020-05-28 18:52 | NUR ---
PT WAS ESCORTED TO EXIT VIA WHEELCHAIR. RT RADIAL SITE REMAINS SOFT WITHOUT BLEEDING OR HEMATOMA. PT STEADY ON HER FEET IN ROOM PRIOR TO DISCHARGE.
== END 2020-05-28 18:52 | disposition home or self-care (01) ==
LOC: COL.CAR 07:19
PROVIDERS: Internal Medicine Cardiovascular Disease
DX: R94.39 Abnormal result of other cardiovascular function study (principal); I20.0 Unstable angina; I10 Essential (primary) hypertension; E78.5 Hyperlipidemia, unspecified; E03.9 Hypothyroidism, unspecified; G47.33 Obstructive sleep apnea (adult) (pediatric); D68.59 Other primary thrombophilia; E11.9 Type 2 diabetes mellitus without complications; G43.909 Migraine, unspecified, not intractable, without status migrainosus; F32.9 Major depressive disorder, single episode, unspecified; Z86.711 Personal history of pulmonary embolism; Z79.890 Hormone replacement therapy; Z79.01 Long term (current) use of anticoagulants; Z79.899 Other long term (current) drug therapy
CPT/HCPCS: J1644; J2250; J3010

== ENCOUNTER 2020-09-08 16:01 | Emergency (ER) | payer MEDICARE, OTHER ==
[~2020-09-08] VITALS: Ht 155.1 cm; Wt 100.5 kg
[~2020-09-08 16:01] MED LIST changes: +ADVIL200 MG PO; +BENADRYL25 M2 PO; +DUO-KAPS1 CAP PO
[2020-09-08 16:02] VITALS: TEMP 99.1
[2020-09-08 17:28] LABS: HEMATOCRIT 31.9 % (37.0-47.0); MEAN CELL VOLUME 84 fl (80.0-100.0); MEAN CORPUSCULAR HEMOGLOBIN 27 pg (27.0-31.0); MEAN CORPUSCULAR HGB CONC 31 g/dl (33.0-37.0); PLATELET COUNT 273 K/mm3 (130-400); RED BLOOD COUNT 3.78 M/mm3 (4.10-5.30); REDCELL DISTRIBUTION WIDTH-CV 15.9 % (11.5-14.5)
[2020-09-08 17:34] LABS: INR 2.8 (0.8-3.0); PROTHROMBIN TIME 31.3 SECONDS (9.7-12.8)
[2020-09-08 17:57] VITALS: BP 153/80; PULSE 70
== END 2020-09-08 18:06 | disposition home or self-care (01) ==
LOC: COL.ER 16:01
PROVIDERS: Emergency Medicine
DX: R04.0 Epistaxis (principal); Z79.01 Long term (current) use of anticoagulants; Z88.8 Allergy status to other drugs, medicaments and biological substances; Z88.0 Allergy status to penicillin; Z88.2 Allergy status to sulfonamides; Z87.891 Personal history of nicotine dependence

== ENCOUNTER 2020-09-10 16:34 | Emergency (ER) | payer MEDICARE, OTHER ==
[~2020-09-10] VITALS: Ht 154.9 cm; Wt 99.5 kg
[2020-09-10 16:59] VITALS: BP 119/67; TEMP 97.7
[2020-09-10 17:15] VITALS: PULSE 55
== END 2020-09-10 17:15 | disposition home or self-care (01) ==
LOC: COL.ER 16:34
DX: Z48.00 Encounter for change or removal of nonsurgical wound dressing (principal); I10 Essential (primary) hypertension; E78.5 Hyperlipidemia, unspecified; E03.9 Hypothyroidism, unspecified; K21.9 Gastro-esophageal reflux disease without esophagitis; Z86.711 Personal history of pulmonary embolism; Z88.0 Allergy status to penicillin; Z88.2 Allergy status to sulfonamides; Z88.8 Allergy status to other drugs, medicaments and biological substances; Z87.891 Personal history of nicotine dependence; Z79.890 Hormone replacement therapy

== ENCOUNTER 2021-10-15 16:45 | Observation (INO) | payer MEDICARE, OTHER ==
[~2021-10-15] VITALS: Ht 152.4 cm; Wt 98.2 kg
[2021-10-15 17:43] LABS: BASO % 0.7 % (0.0-2.0); EOS # 0.1 K/mm3 (0.0-0.7); EOS % 2.6 % (0.0-4.0); GRAN # 3.3 K/mm3 (1.4-6.5); GRAN % 59.9 % (42.2-75.2); HEMOGLOBIN 11.5 g/dl (12.5-16.0); LYMPH # 1.4 K/mm3 (1.2-3.4); LYMPH % 24.7 % (20.0-51.0); MEAN CELL VOLUME 86 fl (80.0-100.0); MEAN CORPUSCULAR HEMOGLOBIN 29 pg (27-31); MEAN CORPUSCULAR HGB CONC 34 g/dl (33.0-37.0); MONO # 0.7 K/mm3 (0.1-0.6); MONO % 11.9 % (1.7-9.3); PLATELET COUNT 259 K/mm3 (130-400); REDCELL DISTRIBUTION WIDTH-CV 13.6 % (11.5-14.5)
[2021-10-15 17:45] LABS: HEMATOCRIT 34.3 % (37.0-47.0)
[2021-10-15 18:03] LABS: ALANINE AMINOTRANSFERASE 17 U/L (0-55); ALKALINE PHOSPHATASE 78 U/L (40-150); ANION GAP 10 mmol/L (7-16); AST,SGOT 27 U/L (5-34); BILIRUBIN,TOTAL 0.3 mg/dL (0.2-1.2); BLOOD UREA NITROGEN 12 mg/dL (10-20); CARBON DIOXIDE 22 mmol/L (23-31); CHLORIDE 99 mmol/L (98-107); CREATININE, serum 0.85 mg/dL (0.57-1.11); GLUCOSE 82 mg/dL (70-99); POTASSIUM 4.4 mmol/L (3.5-4.5); SODIUM 131 mmol/L (136-145); TOTAL PROTEIN 7.4 gm/dL (6.2-8.1)
[2021-10-15 18:13] LABS: ALCOHOL(ethanol),MEDICAL < 10 mg/dL (0-10); SALICYLATE < 5.0 mg/dL (15.0-30.0); TROPONIN-I < 0.010 ng/mL (0.00-0.033)
[2021-10-15 21:24] LABS: INR 1.2 (0.8-3.0); PROTHROMBIN TIME 12.8 SECONDS (9.7-12.8)
--- NOTE | 2021-10-15 23:45 | NUR ---
Arrived to room 345 via stretcher from ED. A&Ox3. Admission assessment complete. VS stable. NC WNL. Left wrist INT flushes without difficulty. Noted to wear a CPAP at night but states wearing O2 will be okay tonight. Placed on 2L/NC. Amission orders initiated. Currently has a brace to right wrist-states "I need to have surgery due to arthritis and this helps the pain." Strand [employer] strength equal. Plan of care discussed for this shift to include meds/calling for questions/concerns. Verbalizes understanding/denies needs. Call light in reach. Will monitor.
[2021-10-16] MEDS ORDERED: KLONOPIN 0.5MG0.5 MG PO (00:07)
[2021-10-16] MEDS ORDERED: WELLBUTRIN XL300 M1 PO (00:07)
[2021-10-16] MEDS ORDERED: SEROQUEL 1100 MG/TAB PO (00:08)
[2021-10-16 00:13] VITALS: BP 136/55; PULSE 54; TEMP 98.7
[2021-10-16 03:19] VITALS: BP 139/62; PULSE 52; TEMP 98.4
--- NOTE | 2021-10-16 05:13 | NUR ---
Patient had an uneventful night. A&Ox3. Speech has not been slurred. TELE reporting SB. Denies pain/nausea/shortness of breath. VS stable. On room air. Left wrist 20g flushes without difficulty. Instructed that we still need a UA. Verbalizes understanding. Denies current needs. Call light in reach. Will monitor.
--- NOTE | 2021-10-16 06:19 | NUR ---
Dr Gregorio called for Neuro consult. No answer-message left.
[2021-10-16 06:27] LABS: BASO % 0.4 % (0.0-2.0); EOS # 0.1 K/mm3 (0.0-0.7); EOS % 3.1 % (0.0-4.0); GRAN # 2.2 K/mm3 (1.4-6.5); GRAN % 49.1 % (42.2-75.2); HEMOGLOBIN 11.1 g/dl (12.5-16.0); LYMPH # 1.6 K/mm3 (1.2-3.4); MEAN CELL VOLUME 87 fl (80.0-100.0); MEAN CORPUSCULAR HEMOGLOBIN 29 pg (27-31); MEAN CORPUSCULAR HGB CONC 33 g/dl (33.0-37.0); MEAN PLATELET VOLUME 7.9 fl (7.4-10.4); MONO # 0.5 K/mm3 (0.1-0.6); MONO % 11.2 % (1.7-9.3); PLATELET COUNT 232 K/mm3 (130-400); RED BLOOD COUNT 3.84 M/mm3 (4.10-5.30); REDCELL DISTRIBUTION WIDTH-CV 13.8 % (11.5-14.5)
[2021-10-16 06:30] LABS: HEMATOCRIT 33.4 % (37.0-47.0)
[2021-10-16 06:43] LABS: CALCIUM 8.5 mg/dL (8.4-10.2); CHOLESTEROL RISK RATIO 2.8; CREATININE, serum 0.82 mg/dL (0.57-1.11); POTASSIUM 3.9 mmol/L (3.5-4.5)
[2021-10-16 07:53] VITALS: BP 150/73; PULSE 52; TEMP 98.5
[2021-10-16 08:10] LABS: COLLECTION METHOD CLEAN CATCH
[2021-10-16 08:21] LABS: MUCOUS Present (NOT PRESENT); PH 5 (5-8); URINE APPEARANCE Hazy (CLEAR/HAZY); URINE BACTERIA None Seen /hpf (NONE SEEN); URINE BILIRUBIN Negative (NEGATIVE); URINE BLOOD Negative (NEGATIVE); URINE COLOR Yellow (YELLOW); URINE GLUCOSE Negative (NEGATIVE); URINE KETONE Negative (NEGATIVE); URINE LEUKOCYTE ESTERASE Negative (NEGATIVE); URINE NITRATE Negative (NEGATIVE); URINE PROTEIN(semi-quant) Negative (NEGATIVE); URINE RBC 20-50 /hpf (0-2); URINE UROBILINOGEN Negative (NEGATIVE)
--- NOTE | 2021-10-16 11:01 | NUR ---
PT INDEPENDENT. DENIES NEEDS AT THIS TIME. CONFUSION APPEARS CLEARED. PT IS A/O X4. EATING AND DRINKING WITH NO N/V. MONITORING CONTINUING.
--- NOTE | 2021-10-16 11:12 | NUR ---
die try out worker met with patient for discharge planning. Patient informs she lives alone in an apartment, is independent in her ADLs/IADLs, and uses a CPAP machine at night. She has no other oxygen or medical equipment needs at home. She states her primary care physician is Dr. Brianne Mcgill, and she obtains her medications from [facility] pharmacy. She has no difficulties obtaining or financing her medications at this time. She confirms her brother Mariano Mcallister, residing in [place] ([phone]) and her daughter Gaby Louis, residing in [place], [place], ([phone]) are her DPOA-HC; she does have this paperwork filed in her medical record. Patient can identify no needs and/or concerns for returning to home following her hospitalization here. Social work will continue to follow for d/c needs. *Discharge plan: Home. Further needs pending*
[2021-10-16 12:00] VITALS: BP 132/52; PULSE 57; TEMP 98.5
[2021-10-16 15:28] VITALS: BP 139/76; PULSE 51; TEMP 98.6
--- NOTE | 2021-10-16 20:00 | NUR ---
Pt. sitting up in chair. Pt. is A&OX3, assessment complete. INT to lt. wrist patent. Bruise to lt. forearm noted. Pt. reports headache pain at a 6 on pain scale, giving pain meds per orders. Pt. denies further needs, call light within reach.
[2021-10-16 20:38] VITALS: BP 120/51; PULSE 51; TEMP 98.2
[2021-10-17 00:02] VITALS: BP 90/41; PULSE 51; TEMP 97.5
[2021-10-17 03:39] VITALS: BP 121/64; PULSE 61; TEMP 97.9
[2021-10-17 05:38] LABS: EOS # 0.1 K/mm3 (0.0-0.7); EOS % 3.2 % (0.0-4.0); GRAN # 2.1 K/mm3 (1.4-6.5); GRAN % 52.3 % (42.2-75.2); HEMOGLOBIN 11.6 g/dl (12.5-16.0); LYMPH # 1.2 K/mm3 (1.2-3.4); LYMPH % 30.5 % (20.0-51.0); MEAN CELL VOLUME 87 fl (80.0-100.0); MEAN CORPUSCULAR HEMOGLOBIN 29 pg (27-31); MEAN CORPUSCULAR HGB CONC 33 g/dl (33.0-37.0); MEAN PLATELET VOLUME 7.9 fl (7.4-10.4); MONO # 0.5 K/mm3 (0.1-0.6); MONO % 12.8 % (1.7-9.3); PLATELET COUNT 242 K/mm3 (130-400); RED BLOOD COUNT 4.01 M/mm3 (4.10-5.30); REDCELL DISTRIBUTION WIDTH-CV 13.7 % (11.5-14.5)
[2021-10-17 05:43] LABS: HEMATOCRIT 34.7 % (37.0-47.0)
[2021-10-17 05:50] LABS: CALCIUM 8.7 mg/dL (8.4-10.2); CREATININE, serum 0.92 mg/dL (0.57-1.11); POTASSIUM 3.6 mmol/L (3.5-4.5)
[2021-10-17 07:25] VITALS: BP 126/80; PULSE 60; TEMP 97.9
--- NOTE | 2021-10-17 10:16 | NUR ---
PT IS TAKEN DOWN TO 2ND FLOOR FOR EEG WITH CARDIOPULMONARY.
[2021-10-17 11:18] VITALS: BP 136/68; PULSE 92; TEMP 97.9
--- NOTE | 2021-10-17 11:39 | NUR ---
PT IN CT.
[2021-10-17 16:06] VITALS: BP 115/40; PULSE 58; TEMP 98.6
--- NOTE | 2021-10-17 17:33 | NUR ---
PT IS CURRENTLY RESTING IN BED WITH EYES CLOSED, LIGHTS OFF IN ROOM. PT HAS HAD A MIGRAINE ON ET OFF THIS AFTERNOON. PT'S NEURO CHECKS HAVE ALL BEEN NORMAL, PT HAS BEEN ORIENTED X4, SPEECH IS CLEAR.
--- NOTE | 2021-10-17 18:17 | NUR ---
PT IS SITTING UP IN BED WITH LIGHTS ON, IS CHEERFUL ET STATES THAT SHE IS FEELING MUCH BETTER COMPARED TO EARLIER. DENIES NEEDS. CALL LIGHT WITHIN REACH.
--- NOTE | 2021-10-17 19:45 | NUR ---
Pt. sitting up in chair. Pt. is A&OX3, assessment complete. INT to lt hand patent. Pt. denies pain or other needs. call light within reach.
[2021-10-17 21:36] VITALS: BP 150/51; PULSE 51; TEMP 97.3
[2021-10-18 04:18] VITALS: BP 125/61; PULSE 55; TEMP 98.5
[2021-10-18 07:30] VITALS: BP 128/62; PULSE 53; TEMP 98.1
--- NOTE | 2021-10-18 07:30 | NUR ---
Pt A&O x 4. Shows no signs of confusion and no complaints of pain at this time. AP was 53 with a RRR. Pt is wearing a brace on her R wrist and states that she only takes it off to shower. Pt is independent when it comes to ambulating and completing ADLs. Pt voiding and passing flatus regularly. No complaints at this time.
[2021-10-18 09:54] VITALS: PULSE 60
--- NOTE | 2021-10-18 10:36 | NUR ---
STUDENT NURSE CARING FOR PT REPORTS THAT PT REFUSED LOVENOX INJECTION. PT IS A&0 X4, STATES THAT SHE HAS HAD A SINUS HEADACHE TODAY R/T DRYNESS. TYLENOL PO WAS ADMINISTERED. INT IN PT'S LEFT HAND HAS BEEN DISCONTINUED BY NURSE ON PREVIOUS SHIFT.
--- NOTE | 2021-10-18 10:46 | NUR ---
Pt given scheduled PO meds. AP was 62 & pt was given metoprolol 100 mg and cardizem 240 mg. Pt refused lovenox 40 mg SQ injection.
[2021-10-18 12:57] VITALS: BP 143/72; PULSE 53; TEMP 98.3
--- NOTE | 2021-10-18 13:03 | NUR ---
PT IS IN BED, STATES THAT SHE HAS BEEN FEELING NAUSEOUS WITH NO REAL KNOWN CAUSE. DR. ALICEA NOTIFIED, PT WILL BE GIVEN ZOFRAN.
--- NOTE | 2021-10-18 14:06 | NUR ---
PT STATES THAT HER NAUSEA HAS SUBSIDED SINCE TAKING ZOFRAN. PT IS STILL EATING LUNCH BUT HAS GOTTEN HERSELF DRESSED TO PREPARE TO GO HOME.
--- NOTE | 2021-10-18 14:47 | NUR ---
PT HAS BEEN DISCHARGED TO HOME. PT WAS GIVEN DISCHARGE EDUCATION ET INSTRUCTIONS, DEMONSTRATES UNDERSTANDING ET DENIES QUESTIONS. PT HAS DRESSED SELF, IS TAKEN DOWNSTAIRS VIA WC ACCOMPANIED BY PAOLA SOTELO. PT IS DRIVING HERSELF HOME.
== END 2021-10-18 14:30 | disposition home or self-care (01) ==
LOC: COL.ER 16:45 → SURG 20:49
PROVIDERS: Emergency Medicine; Student in an Organized Health Care Education/Training Program; ADMIT Student in an Organized Health Care Education/Training Program
DX: G93.40 Encephalopathy, unspecified (principal); I10 Essential (primary) hypertension; E78.5 Hyperlipidemia, unspecified; K21.9 Gastro-esophageal reflux disease without esophagitis; E03.9 Hypothyroidism, unspecified; E13.42 Other specified diabetes mellitus with diabetic polyneuropathy; G47.33 Obstructive sleep apnea (adult) (pediatric); Z20.822 Contact with and (suspected) exposure to COVID-19; R47.1 Dysarthria and anarthria; J30.2 Other seasonal allergic rhinitis; G25.81 Restless legs syndrome; G43.909 Migraine, unspecified, not intractable, without status migrainosus; F41.9 Anxiety disorder, unspecified; F31.9 Bipolar disorder, unspecified; Z79.890 Hormone replacement therapy; Z79.899 Other long term (current) drug therapy; Z85.828 Personal history of other malignant neoplasm of skin; Z87.891 Personal history of nicotine dependence; Z86.711 Personal history of pulmonary embolism; Z82.3 Family history of stroke; Z79.01 Long term (current) use of anticoagulants
CPT/HCPCS: 99232-AI; A9575; G0378; J1650; Q9967

== ENCOUNTER → 2021-12-05 | Outpatient (CLI) | payer MEDICARE, OTHER ==
[~2021-12-05] MED LIST changes: +COREG 6.256.25 MG/TA; +NORVASC 10MG10 MG PO; +SEROQUEL 1100 MG/TAB PO; +WELLBUTRIN XL300 M1 PO
== END ==
LOC: MC.RAD 14:28
DX: Z12.31 Encounter for screening mammogram for malignant neoplasm of breast (principal)

== ENCOUNTER 2021-12-15 07:04 | Outpatient (CLI) | payer MEDICARE ==
[~2021-12-15] VITALS: Ht 152.5 cm; Wt 100.3 kg
[~2021-12-15 07:04] MED LIST changes: -COREG 6.256.25 MG/TA; -NORVASC 10MG10 MG PO
[2021-12-15] MEDS ORDERED: IMITREX100 MG PO (08:03)
[2021-12-15] MEDS ORDERED: BENADRYL25 M2 PO (08:04)
[2021-12-15] MEDS ORDERED: COREG 6.256.25 MG/TA (08:05)
[2021-12-15] MEDS ORDERED: NORVASC 10MG10 MG PO (08:05)
[2021-12-15 08:15] VITALS: BP 165/78; PULSE 66; TEMP 97.9
[2021-12-15 08:57] VITALS: BP 165/78; PULSE 69; TEMP 98.3
[2021-12-15 10:17] VITALS: BP 145/77; PULSE 72
--- NOTE | 2021-12-15 11:06 | NUR ---
Pt given discharge instructions, pt verbalizes understanding. Pt escorted to her car by staff ambulating steadily.
== END 2021-12-15 10:40 | disposition home or self-care (01) ==
LOC: COL.CAR 07:04
DX: R55 Syncope and collapse (principal); R42 Dizziness and giddiness; R00.1 Bradycardia, unspecified; I26.99 Other pulmonary embolism without acute cor pulmonale; R53.83 Other fatigue; I10 Essential (primary) hypertension; E78.2 Mixed hyperlipidemia; I34.0 Nonrheumatic mitral (valve) insufficiency; E66.01 Morbid (severe) obesity due to excess calories; G47.33 Obstructive sleep apnea (adult) (pediatric); Z99.89 Dependence on other enabling machines and devices; Z68.41 Body mass index [BMI] 40.0-44.9, adult; Z79.899 Other long term (current) drug therapy
CPT/HCPCS: 27886; C1764

== ENCOUNTER → 2022-05-22 | Outpatient (CLI) | payer MEDICARE ==
[~2022-05-22] MED LIST changes: +COREG 6.256.25 MG/TA; +NORVASC 10MG10 MG PO
== END ==
LOC: MHCPAIN 08:39
DX: M47.896 Other spondylosis, lumbar region (principal); M54.81 Occipital neuralgia; M53.3 Sacrococcygeal disorders, not elsewhere classified; M79.2 Neuralgia and neuritis, unspecified
CPT/HCPCS: G0463

== ENCOUNTER 2022-10-03 10:30 | Outpatient (RCR) | payer MEDICARE | END 2022-10-04 08:35 | disposition home or self-care (01) | LOC: WSPT 10:30 | DX: R26.81 Unsteadiness on feet (principal) ==

== ENCOUNTER → 2022-11-23 | Outpatient (CLI) | payer MEDICARE, OTHER | LOC: COL.RAD 10:46 | DX: K76.89 Other specified diseases of liver (principal); Z86.711 Personal history of pulmonary embolism | CPT/HCPCS: Q9967 ==

== ENCOUNTER 2023-08-03 12:44 | Day surgery (SDC) | payer MEDICARE, OTHER ==
[~2023-08-03] VITALS: Ht 154.9 cm; Wt 99.7 kg
[~2023-08-03 12:44] MED LIST changes: +LR 1,000 ML IV SCH
[2023-08-03] MEDS ORDERED: Ondansetron 4 MG/2 ML VIAL IV PRN (12:45)
[2023-08-03] MEDS ORDERED: Lidocaine PF 2% (20 MG/ML) 5 ML VIAL ONE (13:35)
[2023-08-03] MEDS ORDERED: Glycopyrrolate 0.2 MG/ML 1 ML VIAL ONE (13:35)
[2023-08-03 13:52] VITALS: BP 137/77; PULSE 63; TEMP 98.9
[2023-08-03] MEDS ORDERED: REQUIP2 MG PO (14:05)
[2023-08-03] MEDS ORDERED: FLONASE NASAL S16 GM NS (14:06)
[2023-08-03] MEDS ORDERED: AUSTEDO9 MG PO (14:08)
[2023-08-03] MEDS ORDERED: BIOTIN5000 MCG PO (14:08)
[2023-08-03] MEDS ORDERED: CARDIZEM CD 24240 MG PO (14:09)
[2023-08-03] MEDS ORDERED: PHARMASSURE ZIN50 MG PO (14:10)
[2023-08-03] MEDS ORDERED: VITAMIN D362.5 MC1 PO (14:11)
[2023-08-03] MEDS ORDERED: VITAMIN B12 1541 TAB PO (14:11)
[2023-08-03] MEDS ORDERED: NATURAL E400 IU PO (14:15)
[2023-08-03] MEDS ORDERED: MULTIPLE VITAMI1 CAP PO (14:15)
[2023-08-03] MEDS ORDERED: BENICAR40 MG PO (14:16)
[2023-08-03] MEDS ORDERED: FERROUS SU325 MG/TAB PO (14:18)
[2023-08-03 14:25] VITALS: BP 114/65; PULSE 66
--- NOTE | 2023-08-03 14:25 | NUR ---
Pt returned via cart to recliner in bay with SBA. A&O. VSS-see flowsheet. Warm blanket given. Given juice and berkley diego per request. Call light in reach. Denies needs.
[2023-08-03 14:30] VITALS: BP 123/90; PULSE 60
[2023-08-03 14:45] VITALS: BP 135/81; PULSE 62
[2023-08-03 15:00] VITALS: BP 138/72; PULSE 62
--- NOTE | 2023-08-03 15:15 | NUR ---
Pt tolerated oral intake. VSS-see flowsheet. IV removed and pressure dressing applied. Discharge teaching completed, verbalized understanding. Dr Ho in to visit with pt post procedure.
--- NOTE | 2023-08-03 15:40 | NUR ---
Pt taken via wheelchair to private vehicle for discharge home with friend, Migdalia driving.
== END 2023-08-03 15:40 | disposition home or self-care (01) ==
LOC: SDCO 12:44
DX: Z12.11 Encounter for screening for malignant neoplasm of colon (principal); D12.3 Benign neoplasm of transverse colon; K57.30 Diverticulosis of large intestine without perforation or abscess without bleeding; E66.01 Morbid (severe) obesity due to excess calories; Z68.41 Body mass index [BMI] 40.0-44.9, adult
CPT/HCPCS: J2704; J7120

== ENCOUNTER 2023-08-28 11:15 | Outpatient (RCR) | payer MEDICARE, OTHER, BC ==
[~2023-08-28 11:15] MED LIST changes: +AUSTEDO9 MG PO; +BENICAR40 MG PO; +FERROUS SU325 MG/TAB PO; -LR 1,000 ML IV SCH; +MULTIPLE VITAMI1 CAP PO; +NATURAL E400 IU PO; +PHARMASSURE ZIN50 MG PO; +REQUIP2 MG PO; +VITAMIN B12 1541 TAB PO; +VITAMIN D362.5 MC1 PO
== END 2023-08-29 | disposition home or self-care (01) ==
LOC: MKS.ESL.PT
DX: M51.36 Other intervertebral disc degeneration, lumbar region (principal); Z96.691 Finger-joint replacement of right hand

== ENCOUNTER → 2023-09-27 | Outpatient (RCR) | payer MEDICARE, OTHER, BC | END | disposition home or self-care (01) | LOC: MKS.ESL.PT | DX: M51.36 Other intervertebral disc degeneration, lumbar region (principal); Z96.691 Finger-joint replacement of right hand ==

== ENCOUNTER → 2024-01-14 | Outpatient (CLI) | payer MEDICARE, OTHER ==
[~2024-01-14] MED LIST changes: +Albuterol 0.083% Neb Soln 2.5 MG/3 ML UD IH ONE
== END ==
LOC: COL.CARD 04:44
DX: R06.02 Shortness of breath (principal)

== ENCOUNTER 2024-05-05 15:09 | Emergency (ER) | payer MEDICARE ==
[~2024-05-05] VITALS: Ht 154.9 cm; Wt 100.0 kg
[~2024-05-05 15:09] MED LIST changes: -Albuterol 0.083% Neb Soln 2.5 MG/3 ML UD IH ONE
[2024-05-05] MEDS ORDERED: NS 500 ML IV ONE (15:30)
[2024-05-05 15:36] LABS: BASO # 0.1 K/mm3 (0.0-0.2); BASO % 0.7 % (0.0-2.0); EOS # 0.2 K/mm3 (0.0-0.7); EOS % 2.4 % (0.0-4.0); GRAN # 5.3 K/mm3 (1.4-6.5); GRAN % 75.4 % (42.2-75.2); HEMOGLOBIN 10.1 g/dl (12.5-16.0); LYMPH # 0.8 K/mm3 (1.2-3.4); LYMPH % 11.9 % (20.0-51.0); MEAN CELL VOLUME 82 fl (80.0-100.0); MEAN CORPUSCULAR HEMOGLOBIN 26 pg (27-31); MEAN CORPUSCULAR HGB CONC 32 g/dl (33.0-37.0); MONO # 0.7 K/mm3 (0.1-0.6); MONO % 9.3 % (1.7-9.3); PLATELET COUNT 297 K/mm3 (130-400); RED BLOOD COUNT 3.87 M/mm3 (4.10-5.30); REDCELL DISTRIBUTION WIDTH-CV 17.2 % (11.5-14.5)
[2024-05-05 15:37] LABS: HEMATOCRIT 31.8 % (37.0-47.0)
[2024-05-05 15:38] LABS: INR 2.9 (0.8-3.0); PROTHROMBIN TIME 30.6 SECONDS (9.7-12.8)
[2024-05-05 15:54] LABS: ALBUMIN 3.8 g/dL (3.4-4.8); BILIRUBIN,TOTAL 0.2 mg/dL (0.2-1.2); CALCIUM 9.2 mg/dL (8.4-10.2); CREATININE, serum 1.33 mg/dL (0.57-1.11); POTASSIUM 4.4 mEq/L (3.5-4.5); TOTAL PROTEIN 7.4 g/dl (6.2-8.1)
[2024-05-05 16:13] LABS: C-REACTIVE PROTEIN 0.26 mg/dL (0.00-0.50)
[2024-05-05 16:14] LABS: TROPONIN-I 0.013 ng/mL (0.00-0.033); TSH w REFLEX 0.698 uIU/mL (0.350-4.940)
[2024-05-05 18:21] LABS: URINE APPEARANCE CLEAR (CLEAR/HAZY); URINE BLOOD NEGATIVE (NEGATIVE); URINE COLOR YELLOW (YELLOW); URINE GLUCOSE 2+ (NEGATIVE); URINE KETONE NEGATIVE (NEGATIVE); URINE NITRATE NEGATIVE (NEGATIVE); URINE PROTEIN(semi-quant) NEGATIVE (NEGATIVE); URINE UROBILINOGEN 0.2 E.U/dL (0.2-1.0)
[2024-05-05 18:29] LABS: COLLECTION METHOD CATHETER
[2024-05-05 20:00] VITALS: BP 157/89; PULSE 66; TEMP 97.9
--- NOTE | 2024-05-06 08:31 | NUR ---
area field worker received consult for pt in ER yesterday, 05/05 1830 with falls and not safe to live alone. SUAD called pt's number and left voicemail. SUAD called both SUAD Kwong and Sherry at [facility] to assist in reaching out to pt for future planning options. VM left.
--- NOTE | 2024-05-07 15:36 | NUR ---
SUAD left a voicemail with both SUAD Powell and Elenita at [facility] to follow-up with pt.
== END 2024-05-05 20:00 | disposition home or self-care (01) ==
LOC: COL.ER 15:09
PROVIDERS: Emergency Medicine
DX: S09.90XA Unspecified injury of head, initial encounter (principal); R29.6 Repeated falls; Z79.01 Long term (current) use of anticoagulants; W19.XXXA Unspecified fall, initial encounter; W22.8XXA Striking against or struck by other objects, initial encounter
CPT/HCPCS: J7040

== ENCOUNTER 2024-06-26 10:35 | Emergency (ER) | payer MEDICARE, OTHER ==
[~2024-06-26] VITALS: Ht 154.9 cm; Wt 96.8 kg
[2024-06-26 10:40] VITALS: TEMP 97
[2024-06-26 13:00] VITALS: BP 159/68; PULSE 57
[2024-06-26] MEDS ORDERED: Tdap Vaccine 0.5 ML SYRINGE IM ONE (13:15)
== END 2024-06-26 13:03 | disposition home or self-care (01) ==
LOC: COL.ER 10:35
DX: S01.81XA Laceration without foreign body of other part of head, initial encounter (principal); S70.00XA Contusion of unspecified hip, initial encounter; F17.210 Nicotine dependence, cigarettes, uncomplicated; W01.0XXA Fall on same level from slipping, tripping and stumbling without subsequent striking against object, initial encounter